=== PATIENT | male | born 1995 | race American Indian/Alaskan Native ===

== ENCOUNTER 2018-05-06 09:32 | Emergency (ER) | payer SELFPAY ==
[2018-05-06 10:58] LABS: Bilirubin,Urine NEG (Negative); Blood,Urine NEG (Negative); Color,Urine Yellow (Yellow); Mucus,Urine FEW /HPF; Protein,Urine <15 mg/dL mg/dL (Negative); Urobilinogen,Urine < 2.0 mg/dL (<2.0); WBC,Urine < 1.0 /HPF (0.0-6.0)
[2018-05-06 11:01] LABS: Basophils % (Auto) 0.5 % (0.0-1.8); Eosinophils # (Auto) 0.1 K/mm3 (0.0-0.4); Eosinophils % (Auto) 2.3 % (0.0-4.3); Hematocrit 46.4 % (35.5-45.6); Hemoglobin 14.7 gm/dl (11.8-15.2); Lymphocytes # (Auto) 2.8 K/mm3 (1.2-5.4); Lymphocytes % (Auto) 50.8 % (13.4-35.0); Mean Corpuscular HGB Conc 32 % (32-34); Mean Corpuscular Volume 74 fl (84-94); Monocytes # (Auto) 0.5 K/mm3 (0.0-0.8); Monocytes % (Auto) 8.7 % (0.0-7.3); Platelet Count 282 K/mm3 (140-440); Red Blood Count 6.25 M/mm3 (3.65-5.03); Red Cell Distribution Width 15.4 % (13.2-15.2)
[2018-05-06 11:10] LABS: Mean Corpuscular Hemoglobin 24 pg (28-32)
[2018-05-06 11:14] LABS: Alanine Aminotransferase 9 units/L (7-56); BUN/Creatinine Ratio 12; Blood Urea Nitrogen 14 mg/dL (9-20); Calcium 9.6 mg/dL (8.4-10.2); Hemolysis Index 5
--- NOTE | 2018-05-06 11:32 | Emergency Department Report ---
HPI <ARVIND SERNA - Last Filed: 05/06/18 17:33> - HPI HPI: Room 33 The patient is a 22-year-old male presenting with a chief complaint of chest pain and abdominal pain. The patient states approximately one month ago he awakened and noticed that his "grill" (gold teeth) was missing. The patient states he was concerned he may have swallowed them. The patient states the following day at one episode of nausea and vomiting since then he's had intermittent midepigastric abdominal pain that is improved temporarily with eating as well as intermittent chest pain. Patient describes his abdominal pain is stabbing in nature. Patient states he's had intermittent substernal chest pain described as a "hurt." Patient states his abdominal pain is greatest in the morning. There has been no history of fever. Location: [See above] Duration: One Quality: Stabbing Severity: Currently 0/10 Modifying factors: [see above] Context: [see above] Mode of transportation: Unknown <LAMONT NIELSEN - Last Filed: 05/07/18 15:21> - General Chief Complaint: Abdominal Pain Time Seen by Provider: 05/06/18 11:16 ED Past Medical Hx <ARVIND SERNA - Last Filed: 05/06/18 17:33> - Past Medical History Previous Medical History?: No - Surgical History Past Surgical History?: No - Family History Family history: no significant - Social History Smoking Status: Current Every Day Smoker (2 cigarettes daily) Substance Use Type: Alcohol (occasional), Marijuana <LAMONT NIELSEN - Last Filed: 05/07/18 15:21> - Medications Home Medications: Home Medications Medication Instructions Recorded Confirmed Last Taken Type Famotidine [Pepcid] 20 mg PO BID #30 tablet 05/06/18 Unknown Rx traMADol [Ultram] 50 mg PO Q6HR PRN #10 tablet 05/06/18 Unknown Rx ED Review of Systems ROS: Stated complaint: CHEST PAIN Other details as noted in HPI <ARVIND SERNA - Last Filed: 05/06/18 17:33> ROS: Stated complaint: CHEST PAIN Other details as noted in HPI Constitutional: denies: fever Eyes: denies: eye pain ENT: denies: throat pain Cardiovascular: denies: chest pain Gastrointestinal: abdominal pain, nausea, vomiting Genitourinary: denies: dysuria Musculoskeletal: denies: back pain Neurological: headache <LAMONT NIELSEN - Last Filed: 05/07/18 15:21> Physical Exam - Physical Exam Vital Signs: Vital Signs 05/06/18 10:22 Temperature 97.9 F Pulse Rate 67 Blood Pressure 118/72 O2 Sat by Pulse 100 Oximetry <ARVIND SERNA - Last Filed: 05/06/18 17:33> - Physical Exam Vital Signs: Vital Signs 05/06/18 10:22 Temperature 97.9 F Pulse Rate 67 Blood Pressure 118/72 O2 Sat by Pulse 100 Oximetry Physical Exam: GENERAL: The patient is well-developed well-nourished male sitting on stretcher not appearing to be in acute distress. [] HEENT: Normocephalic. Atraumatic. Extraocular motions are intact. Patient has moist mucous membranes. NECK: Supple. Trachea midline CHEST/LUNGS: Clear to auscultation. There is no respiratory distress noted. HEART/CARDIOVASCULAR: Regular. There is no tachycardia. There is no gallop rub or murmur. ABDOMEN: Abdomen is soft, nontender. Patient has normal bowel sounds. There is no abdominal distention. SKIN: There is no rash. There is no edema. There is no diaphoresis. NEURO: The patient is awake, alert, and oriented. The patient is cooperative. The patient has normal speech MUSCULOSKELETAL: There is no evidence of acute injury. <LAMONT NIELSEN - Last Filed: 05/07/18 15:21> ED Course Vital Signs 05/06/18 10:22 Temperature 97.9 F Pulse Rate 67 Blood Pressure 118/72 O2 Sat by Pulse 100 Oximetry <ARVIND SERNA - Last Filed: 05/06/18 17:33> Vital Signs 05/06/18 10:22 Temperature 97.9 F Pulse Rate 67 Blood Pressure 118/72 O2 Sat by Pulse 100 Oximetry <LAMONT NIELSEN - Last Filed: 05/07/18 15:21> ED Medical Decision Making - Lab Data Result diagrams: 05/06/18 10:29 05/06/18 10:29 - Radiology Data Patient: JOE HELM MR#: [id number] : 1995 Acct:[id number] Age/Sex: 22 / M ADM Date: 05/06/18 Loc: ED Attending Dr: Ordering Physician: LAMONT NIELSEN MD Date of Service: 05/06/18 Procedure(s): CT angio chest Accession Number(s): [id number] cc: LAMONT NIELSEN MD FINAL REPORT PROCEDURE: CT angiogram chest with contrast. TECHNIQUE: Computerized tomographic angiography of the chest was performed after the IV injection of iodinated nonionic contrast including image processing. The image data was postprocessed using 2-dimensional multiplanar reformatted (MPR) and 3-dimensional (MIP and/or volume rendered) techniques. HISTORY: Chest pain. COMPARISON: No prior studies are available for comparison. FINDINGS: The trachea and central bronchi appear normal. The lungs are clear and well expanded. There are no pleural effusions. The thoracic aorta has a normal caliber without evidence of dissection. The pulmonary arteries enhance normally. There are no signs of pulmonary embolism. There is no mediastinal adenopathy. The heart size is normal. The adrenal glands are not enlarged. The thoracic skeleton appears intact. IMPRESSION: Normal study. <AVRIND SERNA - Last Filed: 05/06/18 17:33> - Lab Data Result diagrams: 05/06/18 10:29 05/06/18 10:29 Laboratory Tests 05/06/18 05/06/18 05/06/18 10:29 10:29 10:29 WBC 5.5 RBC 6.25 H Hgb 14.7 Hct 46.4 H MCV 74 L MCH 24 L MCHC 32 RDW 15.4 H Plt Count 282 Lymph % (Auto) 50.8 H Hawkins % (Auto) 8.7 H Eos % (Auto) 2.3 Baso % (Auto) 0.5 Lymph # 2.8 Hawkins # 0.5 Eos # 0.1 Baso # 0.0 Seg Neutrophils % 37.7 L Seg Neutrophils # 2.1 D-Dimer Sodium 142 Potassium 4.7 Chloride 102.8 Carbon Dioxide 31 H Anion Gap 13 BUN 14 Creatinine 1.2 Estimated GFR > 60 BUN/Creatinine Ratio 12 Glucose 87 Calcium 9.6 Total Bilirubin 0.60 AST 21 ALT 9 Alkaline Phosphatase 67 Total Creatine Kinase 199 H CK-MB (CK-2) 1.3 CK-MB (CK-2) Rel Index 0.6 Troponin T < 0.010 Total Protein 7.7 Albumin 4.0 Albumin/Globulin Ratio 1.1 Urine Color Urine Turbidity Urine pH Ur Specific [place] Urine Protein Urine Glucose (UA) Urine Ketones Urine Blood Urine Nitrite Urine Bilirubin Urine Urobilinogen Ur Leukocyte Esterase Urine WBC (Auto) Urine RBC (Auto) Urine Mucus 05/06/18 05/06/18 10:33 11:37 WBC RBC Hgb Hct MCV MCH MCHC RDW Plt Count Lymph % (Auto) Hawkins % (Auto) Eos % (Auto) Baso % (Auto) Lymph # Hawkins # Eos # Baso # Seg Neutrophils % Seg Neutrophils # D-Dimer 669.75 H Sodium Potassium Chloride Carbon Dioxide Anion Gap BUN Creatinine Estimated GFR BUN/Creatinine Ratio Glucose Calcium Total Bilirubin AST ALT Alkaline Phosphatase Total Creatine Kinase CK-MB (CK-2) CK-MB (CK-2) Rel Index Troponin T Total Protein Albumin Albumin/Globulin Ratio Urine Color Yellow Urine Turbidity Clear Urine pH 5.0 Ur Specific [place] 1.021 Urine Protein <15 mg/dl Urine Glucose (UA) Neg Urine Ketones Neg Urine Blood Neg Urine Nitrite Neg Urine Bilirubin Neg Urine Urobilinogen < 2.0 Ur Leukocyte Esterase Neg Urine WBC (Auto) < 1.0 Urine RBC (Auto) 3.0 Urine Mucus Few - EKG Data -: EKG Interpreted by Ma EKG shows normal: sinus rhythm Rate: normal - EKG Data When compared to previous EKG there are: previous EKG unavailable Interpretation: other (early repolarization) - Differential Diagnosis foreign body ingestion, PE, ACS, peptic ulcer disease, gastritis <LAMONT NIELSEN - Last Filed: 05/07/18 15:21> Critical care attestation.: If time is entered above; I have spent that time in minutes in the direct care of this critically ill patient, excluding procedure time. <ARVIND SERNA - Last Filed: 05/06/18 17:33> Critical care attestation.: If time is entered above; I have spent that time in minutes in the direct care of this critically ill patient, excluding procedure time. <LAMONT NIELSEN - Last Filed: 05/07/18 15:21> ED Disposition Is pt being admited?: No Does the pt Need Aspirin: No <ARVIND SERNA - Last Filed: 05/06/18 17:33> Is pt being admited?: No Does the pt Need Aspirin: No <LAMONT NIELSEN - Last Filed: 05/07/18 15:21> Clinical Impression: Atypical chest pain, Abdominal pain Disposition: DC- TO HOME OR SELFCARE Condition: Stable Instructions: Chest Pain (ED) Additional Instructions: Return to the emergency department immediately should you develop worsening symptoms, fever, inability to tolerate food or liquid or any other concerns. Prescriptions: Famotidine [Pepcid] 20 mg PO BID #30 tablet traMADol [Ultram] 50 mg PO Q6HR PRN #10 tablet PRN Reason: Pain Referrals: PRIMARY CARE, [Primary Care Provider] - 3-5 Days TONIA POWELL MD [Staff Physician] - 3-5 Days (Dr. Powell is a weblogic developer. Please follow-up with him for further evaluation) [facility] [Outside] - 3-5 Days
[2018-05-06 11:53] LABS: Creatine Kinase MB 1.3 ng/mL (0.0-4.0)
--- NOTE | 2018-05-06 14:15 | XRay Report ---
ABDOMEN RADIOGRAPH INDICATION: Possibly swallowed his gold teeth per patient. COMPARISON: None similar at this institution. FINDINGS: Frontal abdominal radiograph demonstrates nonobstructive bowel gas pattern. No focal suspicious radiopaque foreign bodies, calcifications, pneumatosis or pneumoperitoneum. Clear visualized lung bases. Unremarkable bones. CONCLUSION: Normal abdominal radiograph, as described. Thank you for the opportunity to participate in this patient's care.
--- NOTE | 2018-05-06 17:25 | Cat Scan Report ---
FINAL REPORT PROCEDURE: CT angiogram chest with contrast. TECHNIQUE: Computerized tomographic angiography of the chest was performed after the IV injection of iodinated nonionic contrast including image processing. The image data was postprocessed using 2-dimensional multiplanar reformatted (MPR) and 3-dimensional (MIP and/or volume rendered) techniques. HISTORY: Chest pain. COMPARISON: No prior studies are available for comparison. FINDINGS: The trachea and central bronchi appear normal. The lungs are clear and well expanded. There are no pleural effusions. The thoracic aorta has a normal caliber without evidence of dissection. The pulmonary arteries enhance normally. There are no signs of pulmonary embolism. There is no mediastinal adenopathy. The heart size is normal. The adrenal glands are not enlarged. The thoracic skeleton appears intact. IMPRESSION: Normal study.
[2018-05-06 17:46] VITALS: BP 120/78
== END 2018-05-06 17:45 | disposition home or self-care (01) ==
LOC: ED 09:32
DX: R07.89 Other chest pain (principal); R10.84 Generalized abdominal pain; R11.2 Nausea with vomiting, unspecified; F17.210 Nicotine dependence, cigarettes, uncomplicated; F12.10 Cannabis abuse, uncomplicated
CPT/HCPCS: 36415; 71275; 74018; 80053; 81001; 82550; 82553; 84484; 85025; 85379; 99284; Q9967